=== PATIENT | male | born 1975 | race Hispanic/Latino ===

== ENCOUNTER 2021-10-18 15:44 | Emergency (ER) | payer OTHER, SELFPAY ==
[2021-10-18 15:58] VITALS: BP 142/96; PULSE 78; RESP 18; TEMP 36.7; O2SAT 95
--- NOTE | 2021-10-18 16:04 | DI.RAD.S_ITS ---
PROCEDURE: XR FINGER LT MIN 2V INDICATIONS: dog bit tip of middle finger TECHNIQUE: AP hand, 2 views of the left middle finger(s) acquired. COMPARISON: None. FINDINGS: Bones: The left middle finger demonstrates a bone fragment adjacent to the tuft of the distal phalanx consistent with a fracture. Soft tissues: Soft tissue injury of the distal finger tip of the middle finger. IMPRESSION: Soft tissue injury of the middle finger distal phalanx with an adjacent bone fracture fragment. Dictated by: Malcolm Nice M.D. on 10/18/2021 at 17:14 Approved by: Malcolm Nice M.D. on 10/18/2021 at 17:16
--- NOTE | 2021-10-18 16:05 | ED.ANIMALBIT ---
HPI - Animal Bite General Chief Complaint: Animal Bite Stated Complaint: Dog bite Time Seen by Provider: 10/18/21 15:53 Source: patient Mode of arrival: Family Vehicle Limitations: no limitations History of Present Illness HPI narrative: 45-year-old gentleman with left middle finger laceration through the distal portion of the finger/middle portion of the fingernail. His dog and another dog were in a fight than trying to separate them his finger got caught in the mouth a 1 of the dogs and the laceration was noted. Complains of pain at the site but no other complications. Denies any recent fevers, cough, chills, vomiting, diarrhea, abdominal pain, chest pain, palpitations, headaches. Related Data Previous Rx's Medication Instructions Recorded amoxicillin 875 mg-potassium 1 tab PO BID #10 tab 10/18/21 clavulanate 125 mg tablet Allergies Allergy/AdvReac Type Severity Reaction Status Date / Time No Known Drug Allergies Allergy Verified 10/18/21 16:28 Review of Systems Review of Systems Narrative: Remainder of complete review of systems is otherwise unremarkable except for that included in the HPI. Patient History Social History Smoking Status: Current every day smoker Smoking Status: Current every day smoker alcohol intake frequency: 0-2 drinks per day Substance Use Type: marijuana Exam Narrative Exam Narrative: General: Alert appropriate in no acute distress Respiratory: Able to speak in full sentences, no obvious respiratory distress Skin: No obvious rashes, warm and dry Neurologic: Grossly intact no obvious asymmetries or abnormalities Psych: appropriate insight and affect, cooperative Extremity: Left hand, distal index finger angled laceration through the tuft and through the nail not involving the nail bed. He is neurovascularly intact. Initial Vital Signs Initial Vital Signs: Vital Signs Temperature 98.1 F 10/18/21 15:58 Pulse Rate 78 10/18/21 15:58 Respiratory Rate 18 10/18/21 15:58 Blood Pressure 142/96 H 10/18/21 15:58 Pulse Oximetry 95 10/18/21 15:58 Procedures Laceration Repair Left index finger: Time of procedure: 17:44 Site: hand Side (If applicable): left Size (cm): 1 Description: flap and contaminated Depth: involves muscle layer Local Anesthetic: lidocaine 1% and with bicarb Amount of anesthesia used (mL): 3 Pre-repair: wound explored, irrigated extensively and wound margins revised (Distal half of the nail and part of the nail bed were avulsed. The small amount that was still attached was cut off without difficulty) Skin layer closed with: nylon Size (cm): 3-0 Number of sutures: 1 Technique: other (Horizontal mattress through the nail itself to close the space yet still drainage.) Course Orders Ordered: ED Orders 10/18/21 16:04 XR finger LT min 2V Stat Discontinued Medications Acetaminophen (Acetaminophen 325 Mg Tablet) 325 mg PO NOW ONE Stop: 10/18/21 16:25 Last Admin: 10/18/21 16:29 Dose: 325 mg Documented by: ALEXI Bacitracin (Bacitracin Oint 0.9 Gm Pckt) 1 applic TOP NOW ONE Stop: 10/18/21 16:05 Last Admin: 10/18/21 16:30 Dose: 1 applic Documented by: ALEXI Diphtheria/Tetanus/Acell Pertussis (Tet,Diph,Pertuss(Acell),Vac/Pf 0.5 Ml Syringe) 0.5 ml IM .ONCE ONE Stop: 10/18/21 16:05 Last Admin: 10/18/21 16:29 Dose: 0.5 ml Documented by: TENYLMELISSA Ibuprofen (Ibuprofen 400 Mg Tablet) 400 mg PO NOW ONE Stop: 10/18/21 16:25 Last Admin: 10/18/21 16:28 Dose: 400 mg Documented by: ALEXI Lidocaine/Sodium Bicarbonate (Lido 1%/Sod Bicarb 8.4% (10ml) 10 Ml Syringe) 10 ml INJ NOW ONE Stop: 10/18/21 16:05 Last Admin: 10/18/21 16:30 Dose: 10 ml Documented by: ALEXI Vital Signs Vital signs: Vital Signs - 8 hr 10/18/21 15:58 Temperature 98.1 F Pulse Rate 78 Respiratory Rate 18 Blood Pressure 142/96 H Pulse Oximetry 95 MDM - Animal Bite MDM Narrative Medical decision making narrative: Dog bite to the distal tip of the finger avulsing the finger tip in the distal portion of the nail off not involving the nail bed. He will be placed on Augmentin. Horizontal mattress was used to simply close space at the nail bed in that suture will need to come out in about 7 days. Findings and concerns reviewed with patient. Will recommend ibuprofen and Tylenol for pain control. He is safe for home discharge Discharge Plan Departure Patient Disposition: Home Clinical Impression: Dog bite, Laceration of finger of left hand with damage to nail Instructions: DI for Dog Bite Activity Restrictions/Additional Instructions: Thank you for coming in today Please keep the wound covered with antibiotic ointment and clean. The stitch will need to be removed on or about October 25. If you notice any increasing pain, redness, drainage or streaks going up your finger or hand, these are all signs of infection and are not okay. You would need to be receding and re-evaluated. I am placing you on Augmentin an antibiotic to prevent infection. Please complete all 5 days. If you have worsening symptoms or concerns please return to the ER Prescriptions: New amoxicillin-pot clavulanate 875-125 mg tablet 1 tab PO BID Qty: 10 0RF
[2021-10-18 16:09] VITALS: BP 129/64; PULSE 72; RESP 16; O2SAT 95
--- NOTE | 2021-10-18 16:17 | PC.NURSE ---
Visitor called nurse into room r/t pt slumped over and diaphoretic, assisted to lay down on stretcher and vitals taken. Pt states his pain is high, ice pack provided and Dr. Lee notified.
[2021-10-18] MEDS: IBUPROFEN 400 MG TABLET PO (16:28)
[2021-10-18] MEDS: TET,DIPH,PERTUSS(ACELL),VAC/PF 0.5 ML SYRINGE IM (16:29)
[2021-10-18] MEDS: ACETAMINOPHEN 325 MG TABLET PO (16:29)
[2021-10-18] MEDS: LIDO 1%/SOD BICARB 8.4% (10ML) 10 ML SYRINGE INJ (16:30)
[2021-10-18] MEDS: BACITRACIN OINT 0.9 GM PCKT 1 APPLIC TOP (16:30)
[2021-10-18] MEDS: AMOXICILLIN/CLAV 875/125 MG 1 TAB PO (18:17)
== END 2021-10-18 18:20 | disposition home or self-care (01) ==
PROVIDERS: Emergency Provider Emergency Medicine
DX: S61.311A Laceration without foreign body of left index finger with damage to nail, initial encounter (principal); W54.0XXA Bitten by dog, initial encounter; Z23 Encounter for immunization
CPT/HCPCS: 11730; 12001; 73140; 90471; 90472; 99283; 99284; 90715